=== PATIENT | male | born 1950 | race Caucasian/White ===

== ENCOUNTER 2024-12-18 06:07 | Inpatient (IN) | payer OTHER, SELFPAY ==
[2024-12-14 09:24] VITALS: BMI 32.7
[2024-12-14 09:58] LABS: % Basophils 0.5 % (0-2); % Eosinophils 1.2 % (0-6); % Immature Granulocytes 0.2 % (0-0.5); % Monocytes 8.6 % (1.7-9.3); % Neutrophils 67.5 % (42.2-75.2); Absolute Eosinophils 0.1 10^3/uL (0-0.7); Absolute Lymphocytes 0.9 10^3/uL (1.2-3.4); Absolute Monocytes 0.4 10^3/uL (0.1-0.6); Absolute Neutrophils 2.9 10^3/uL (1.4-6.5); Hematocrit 38.1 % (39.0-52.0); Hemoglobin 13.3 g/dL (13.0-18.0); Mean Corp Hgb Conc. 34.9 g/dL (33.0-37.0); Mean Corpuscular Hgb 34.7 pg (27.0-31.0); Mean Corpuscular Volume 99.5 fL (80.0-94.0); Mean Platelet Volume 11.1 fL (7.4-10.4); Nucleated Red Blood Cells % 0 % (-); Platelet Count 110 10^3/uL (130-400); Red Blood Cell Count 3.83 10^6/uL (4.70-6.10); Red Cell Dist. Width 13.2 % (11.5-14.5); White Blood Cell Count 4.3 10^3/uL (4.8-10.8)
[2024-12-14 10:07] LABS: INR 1.03; PT 13.8 Sec (11.4-14.6)
[2024-12-14 10:51] LABS: Blood Urea Nitrogen 26 mg/dl (9-20); Calcium 10.1 mg/dl (8.4-10.2); Carbon Dioxide 29 mmol/L (22-30); Chloride 108 mmol/L (98-107); Estimated Creatinine Clearance 76 ml/min; Glucose 132 mg/dl (70-99); Potassium 4.8 mmol/L (3.5-5.1); Sodium 142 mmol/L (135-145); eGFR > 60.00
[2024-12-18] VITALS (24 sets, daily range): BP systolic 122–165; BP diastolic 55–98; BMI 32.6
[2024-12-18] MEDS: BACTROBAN NASAL 1 GRAM NASAL (07:12)
[2024-12-18] MEDS: PERIDEX 0.12% ORAL RINSE 15 ML PO (07:12)
[2024-12-18] MEDS: NSS 500 IV (07:13)
[2024-12-18 07:21] LABS: Glucose - Point of Care 141 mg/dl (70-99)
--- NOTE | 2024-12-18 07:28 | W.SUR.PREOP ---
Pre-Operative Surgical Note
-
I have examined this patient prior to the performance of the scheduled procedure.
The patient's condition is unchanged from the time of the current History and
Physical and the patient is able to undergo the scheduled procedure.
[2024-12-18 08:43] LABS: ACT-LR - POC 255 Seconds (116-155)
[2024-12-18 09:33] LABS: ACT-LR - POC 284 Seconds (116-155)
--- NOTE | 2024-12-18 09:51 | W.SUR.POST ---
Surgical Immediate Post Op
Note
Pre Op Diagnosis: Right iliac artery aneurysm
Post Op Diagnosis: Same
Procedure Performed: Endovascular repair of right common iliac artery aneurysm with iliac branch device
Primary Surgeon: Maryann
Secondary Surgeons: Earle, PGY 5
Anesthesia: General
Estimated Blood Loss: 20cc
Fluids: See anesthesia flowsheet
Drains/Shunts: None
Specimens/Cultures: None
Doppler/Duplex/Angio (Y/N): Y
Complications: None
Operative Findings: No endoleak
[2024-12-18 10:20] LABS: Glucose - Point of Care 170 mg/dl (70-99)
[2024-12-18 10:43] LABS: Hematocrit 39.7 % (39.0-52.0); Hemoglobin 13.6 g/dL (13.0-18.0); Mean Corp Hgb Conc. 34.3 g/dL (33.0-37.0); Mean Corpuscular Hgb 34.3 pg (27.0-31.0); Mean Corpuscular Volume 100.3 fL (80.0-94.0); Mean Platelet Volume 10.7 fL (7.4-10.4); Platelet Count 99 10^3/uL (130-400); Red Blood Cell Count 3.96 10^6/uL (4.70-6.10); Red Cell Dist. Width 13.4 % (11.5-14.5); White Blood Cell Count 6.9 10^3/uL (4.8-10.8)
[2024-12-18 10:46] LABS: INR 1.12; PT 14.7 Sec (11.4-14.6)
[2024-12-18 10:47] LABS: APTT 34.6 Sec (23.4-35.0)
[2024-12-18 10:56] LABS: Blood Urea Nitrogen 19 mg/dl (9-20); Calcium 8.9 mg/dl (8.4-10.2); Carbon Dioxide 22 mmol/L (22-30); Chloride 113 mmol/L (98-107); Estimated Creatinine Clearance 108 ml/min; Glucose 170 mg/dl (70-99); Potassium 5.3 mmol/L (3.5-5.1); Sodium 139 mmol/L (135-145); eGFR > 60.00
--- NOTE | 2024-12-18 11:30 | PTCARENOTE ---
Pt rec'd from PACU at 11:25, neurovascular and site checks completed in tandem with COUNTY AUDITOR [place] upon arrival to ICU 3367. Bilat lower extremeties pink, cool, +Dopp pulses, cap refill >2 sec. Warm blankets applied. VSS, pt is AOx3 with no pain,
pleasant and cooperative. Orders reviewed. CXR, ECG and baseline ICU admit labs ordered per protocol. NSS gtt initiated via right hand per orders, see worklist. 16 pitcairn islander temp sensing calabrese in place for crit I+Os draining clear yellow urine, no
other needs at this time. Admission completed.
--- NOTE | 2024-12-18 11:38 | CON.INTV ---
Consultation
Consultation Request
Date/Time Consultation Requested: 12/18/2024858
Date/Time Consultation Performed: 12/18/2024923
Requesting Provider: PERFECTO Silva
Performing Provider: Dr. Esposito
Reason for Consultation: S/p endovascular repair of right common iliac artery aneurysm
Medical History
-
Chief Complaint: Elective endovascular repair of right common iliac artery aneurysm
History of Present Illness:
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
aneurysm. Patient known to the vascular surgery service with last visit on 11/21/[address] Wolf. Patient has had prior imaging at [facility]/[place]. CT angiogram shows left internal iliac artery aneurysm measuring 3 cm
which has been stable. Also a right common iliac artery aneurysm which measures at least 3.5 cm distal to the end of the right iliac limb. Endovascular repair of the right common iliac artery aneurysm was recommended. The risks and benefits of
this procedure were discussed with the patient in the office and he agreed to a vascular procedure. Today he underwent endovascular pair of right common iliac artery aneurysm with [place] iliac branch endoprosthesis. Patient tolerated procedure well
with no complications and an EBL of 10 cc. He was transferred to the ICU postoperatively and [employer] services consulted for additional management/recommendations.
Patient arrived to the ICU from PACU at 11:25 AM on 12/14/2024. When I saw the patient he was resting in bed in no acute distress. Heart rate 73, BP 122/79 and saturating 98% on room air. He denies chest pain, SOB, QUINN, nausea, fevers or chills.
PMHx: AAA, DM type II, hypertension, RA, former tobacco smoker
PSHx: Stent placement
Past Medical History
Past Medical History: Other (Above as per HPI)
Past Surgical History: Other (Above as per HPI)
Social History
Tobacco: Former Smoker (Quit in 2011, smoked 1-1.5 PPD x 45 years)
Alcohol: Occasional (Drink few cocktails few days a week)
Drug: None
Family History
Family History: Diabetes (Father) and Hypertension (Father)
Allergies / Home Medications
Allergies
Allergy/AdvReac Type Severity Reaction Status Date / Time
chocolate Allergy Severe Itchy Verified 12/18/24 07:25
Throat
Home Medications
�Medication �Instructions �Recorded �Confirmed �Last Taken �Type
H[place]ando 3 Ethyl Acid 2 g PO BID Supplement 12/12/24 12/18/24 12/12/24 09:00 History
aspirin 81 mg tablet 81 mg PO DAILY Blood Clot 12/12/24 12/18/24 12/17/24 09:00 History
Prevention/Tx
empagliflozin 10 mg tablet 10 mg PO DAILY Diabetes 12/12/24 12/18/24 12/14/24 09:00 History
(Jardiance)
folic acid 1 mg tablet 1 mg PO DAILY Supplement 12/12/24 12/18/24 12/12/24 09:00 History
gabapentin 300 mg capsule 600 mg PO HS Neuropathic pain 12/12/24 12/18/24 12/17/24 18:00 History
levothyroxine 137 mcg tablet 137 mcg PO DAILY Thyroid 12/12/24 12/18/24 12/18/24 04:00 History
losartan 50 mg tablet 50 mg PO DAILY Blood Pressure 12/12/24 12/18/24 12/14/24 09:00 History
metformin 500 mg tablet 1,000 mg PO BIDWMEAL Diabetes 12/12/24 12/18/24 12/17/24 18:00 History
Held on 12/18/24.
Instructions: Resume on
12/20/24.
methotrexate sodium 2.5 mg tablet 10 mg PO WE Rheumatoid arthritis 12/12/24 12/18/24 12/12/24 09:00 History
simvastatin 20 mg tablet 20 mg PO QPM High Cholesterol 12/12/24 12/18/24 12/17/24 18:00 History
Review of Systems
-
History Source: Patient
All other systems: Negative unless noted
Vitals / Labs / Diagnostic Testing
Vital Signs
Temp Pulse Resp BP Pulse Ox
97.4 F 81 14 130/76 94
12/18/24 11:30 12/18/24 14:01 12/18/24 14:01 12/18/24 14:01 12/18/24 14:01
Lab Data
12/18/24 10:29
12/18/24 10:29
Laboratory Results
12/18/24
10:29
PT 14.7 H
INR 1.12
APTT 34.6
Diagnostic Testing:
Physical Exam
-
HEENT: Normocephalic and Anicteric
Cardiovascular: S1/S2 and Peripheral Edema (n)
Respiratory: Clear, Wheeze (n), Rales (n), Rhonchi (n) and Non-Labored Respirations
GI: Soft, Distended (Abdominal obesity), Non Tender and Normal Bowel Sounds
Neurology: Awake, Alert, Oriented and Tremors (n)
Skin: Warm and Dry
General: Respiratory Distress (n), Comfortable, Fever (n), Chills (n) and Sweats (n)
Assessment
-
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
aneurysm. Patient known to the vascular surgery service with last visit on 11/21/[address] Wolf. Patient has had prior imaging at [facility]/[place]. CT angiogram shows left internal iliac artery aneurysm measuring 3 cm
which has been stable. Also a right common iliac artery aneurysm which measures at least 3.5 cm distal to the end of the right iliac limb. Endovascular repair of the right common iliac artery aneurysm was recommended. The risks and benefits of
this procedure were discussed with the patient in the office and he agreed to a vascular procedure. Today he underwent endovascular pair of right common iliac artery aneurysm with [place] iliac branch endoprosthesis. Patient tolerated procedure well
with no complications and an EBL of 10 cc. He was transferred to the ICU postoperatively and [employer] services consulted for additional management/recommendations.
Chronic conditions DIRECTOR OF PHYSICIAN PRACTICES: AAA, DM type II, hypertension, RA, former tobacco smoker
Impression:
#Right common iliac artery aneurysm with history of aortoiliac stent graft s/p endovascular repair of right common iliac artery aneurysm with Br[place]hall iliac branch endoprosthesis (POD#0)
#Thrombocytopenia (unclear if this is chronic versus acute)
#Hyperkalemia (mild)
#DM type II complicated by hyperglycemia (mild)
#Rheumatoid arthritis on MTX (weekly on Tuesday; managed by Dr. Fuentes [facility])
#Former tobacco smoker (smoked 1-1.5PPD x 45 years; quit 2011)
Plan:
Postoperative surgical intensive care unit monitoring
Supplemental oxygen as needed to maintain SpO2 >90-94% (currently on room air breathing comfortably)
prn nebulized bronchodilators � not currently bronchospastic
Incentive spirometry encouraged 10x per hour for at least 4 hrs a day
Aspiration precautions
Pain control
Neuro and vascular checks per protocol
Maintain MAP>65
Replete electrolytes with K>4, Mg>2
Maintain euglycemia with goal BG 140-180; check A1C
Vascular surgery following-correspondence and operative notes reviewed
Transfuse blood products as needed to keep Hb>7g/dL, and plt>50k (given post-operative status)
Given his significant tobacco smoking history, he does qualify for lung cancer screening for another 2 years. Imaging has been performed at [facility]; recommend additional screening to be done which could be performed by his PCP or he can always
follow-up with us in the office ([facility])
DVT prophylaxis: HSQ
Early nutrition
Early mobilization
Critical care statement: A total of 41 minutes of critical care time was provided for this patient today. This includes management of unstable vital signs, evaluation of the patient at bedside, reviewing the patient's pertinent medical records
including radiographs, microbiology, laboratory evaluations, and discussion with primary team, consultants, pharmacy, nutrition, physical therapy, case management, charge nurse, critical care nursing, and respiratory therapy.
[2024-12-18] MEDS: NSS 1000 IV ×2 (12:14→20:15)
[2024-12-18 12:24] LABS: Glucose - Point of Care 181 mg/dl (70-99)
--- NOTE | 2024-12-18 13:03 | OR.RPT ---
Operative Report
Operative Report
Date of Operation: 12/18/2024
Pre Op Diagnosis:
1. Right common iliac artery aneurysm
2. History of aortoiliac stent graft performed at outside hospital
Post Op Diagnosis:
1. Right common iliac artery aneurysm
2. History of aortoiliac stent graft performed at outside hospital
Procedure:
1. Endovascular repair of right common iliac artery aneurysm with [place] iliac branch endoprosthesis:
GORE CARLOS 23 mm x 14.5 mm x 10 cm
Right internal iliac stent: 8 mm x 79 mm GORE VBX (post dilated proximal with 12 mm x 20 mm balloon)
Proximal bridge stent: GORE ILIAC LIMB 27 mm x 10 cm
2. Ultrasound-guided percutaneous access to the bilateral common femoral arteries
3. Pro-glide closure bilateral common femoral artery access
Surgeon: Harish Wolf III, MD
Internet Sales Associate: Serge Og MD, PGY5
Anesthesia: General
Complications: None
Estimated Blood Loss: 10 cc
History and Indications for Procedure: 74-year-old male with prior aorto iliac stent grafting at an outside hospital. On surveillance imaging he developed a right common iliac artery aneurysm distal to the end of his right iliac limb. I made the
recommendation that he undergo endovascular repair of the right common iliac artery aneurysm with preservation of the internal iliac artery.
Procedure in Detail: Abhay Avila was correctly identified and placed supine on the operating table. After adequate induction of anesthesia the abdomen, pelvis and bilateral groins were positioned, prepped and draped in the usual sterile fashion.
Preoperative antibiotics were administered. A timeout procedure was performed with the nursing and anesthesia staff confirming the patients identity as well as the nature and laterality of the procedure.
Under direct US guidance the common femoral arteries were identified bilaterally. Percutaneous access was obtained in the standard fashion under direct US guidance using a micropuncture technique. I then upsized to 5Fr sheaths bilaterally over
Bentson wires. A pre-close technique was then used bilaterally with 2, offset Proglide closure devices. The sutures were secured and tucked under the drapes. Bilateral 8 Fr sheaths were then placed over the Bentson wires.
The patient was systemically heparinized.
Lunderquist wires were placed bilaterally through a glide catheter. The wire tips were positioned in the proximal descending thoracic aorta. A 16 Fr dry seal sheath was placed on the right and a 12 Fr on the left. The tips were both advanced
carefully under radiographic guidance. The radiopaque sheath tip on the right was positioned within the distal right iliac limb. The radiopaque sheath tip on the left was positioned just below the flow divider of the main body aortic stent graft.
A glide wire was advanced through the 12 Fr sheath and snared with an EnSnare device from the 16 Fr sheath. The wire was pulled out of the 16 Fr sheath and the wire lengths outside of the body were made to be equal.
The CARLOS device: 23 mm x 14.5 mm x 10 cm was then loaded onto the right femoral Lunderquist wire. The glide wire was loaded into the green port on the CARLOS device. The CARLOS was then advanced under radiographic guidance through the 16 Fr sheath into the
approximate desired location. The 16 Fr sheath was retracted distally and a retrograde sheath shot was performed to clearly visualize the right iliac system. Under roadmap guidance the CARLOS was oriented properly and partially deployed to release the
main body and the internal iliac branch.
The dilator was then readvanced into the 12 Fr. Keeping tension on the glidewire from both sides, the 12 Fr sheath was carefully advanced over the flow divider and hubbed at the left groin skin level. The radiopaque tip of the 12 [place] sheath was
not quite in the CARLOS graft. The dilator was removed. I then loaded a 7 [place]ic long sheath over the through and through Glidewire and brought this through the 12 [place] sheath extending into the CARLOS and internal iliac branch. Using a second glide
wire through the 7 [place]ic sheath I then advanced the wire through the internal iliac branch. I then removed the 7 [place] sheath over the wire. I then advanced a [place] catheter over the second Glidewire and selected the right internal iliac and
advanced the wire into a distal branch. This glide wire was then exchanged out for a [place] wire. Over the [place]ta wire and under radiographic guidance the internal iliac stent -8 mm x 79 mm [place] VBX was positioned appropriately, ensuring proper
overlap with the CARLOS branch and adequate purchase into the internal iliac artery. The stent was deployed without difficulty. A 12 mm balloon was then brought into position through the 12 Fr sheath and the mid and proximal internal iliac stent along
with all areas of overlap were profiled. I then completed deployment of the CARLOS device and carefully removed the delivery system over the wire. The 12 mm balloon was readvanced to the proximal portion of the internal stent. An 8 mm x 40 mm
angioplasty balloon was advanced retrograde through the 16 Icelandic sheath and I performed kissing balloon angioplasty of the external iliac artery and internal iliac artery. The 12 mm angioplasty balloon was removed over the wire. The 12 [place]ic
sheath was pulled back into the left iliac limb. The through and through Glidewire was removed
A pigtail catheter was then advanced over the Lunderquist wire on the right to obtain proper measurements for the bridging stent in the right iliac. I then brought into position a [place] excluder limb 27 mm x 10 cm and positioned this in the desired
location. The limb was deployed in the desired location. The [place] molding was then used to profile balloon all areas of the bridging stent from proximal to distal. The external limb segment was also profiled with this balloon.
A pigtail catheter was advanced through the 12 [place]ic sheath on the left into the proximal aortic main body. A completion arteriogram was then performed and demonstrated an excellent technical result - there was good positioning of the [place] CARLOS on
the right. The external and internal iliac limbs were both patent. The aortic main body was patent. Both the right and left iliac limbs were patent. The right internal iliac artery stent was widely patent and sealed nicely. No endoleak was
identified.
At this point we concluded the procedure. The sheaths were removed over wires one side at a time and the Pro-glide sutures were secured bilaterally. Hemostasis was achieved. Protamine was administered. Sterile dressings were applied.
Attestation: I was present and responsible for the entire procedure
Signed:
Harish Wolf III, MD
Vascular Surgery
[facility]
[2024-12-18] MEDS: NOVOLOG FLEXPEN-MODERATE RESISTANCE 1 UNITS SC ×2 (13:07→17:33)
[2024-12-18 15:20] LABS: Magnesium 1.8 mg/dl (1.6-2.3); Phosphorus 2.6 mg/dl (2.5-4.5)
--- NOTE | 2024-12-18 15:24 | PTCARENOTE ---
Pt remains comfortable, neurovascular checks WNL, bilat LEs warm, pink, cap refill <2 sec, strong Dopplar signals bilat. Groin sites soft, no hematoma noted. Pt tolerated CLD for lunch with no nausea, diet advanced to 1800 ruben diabetic diet for
dinner per WESLEY Zuleta's previous orders. Pt remains with HOB at 30 degrees, only complaint at this time is the calabrese catheter causing him the sensation of needing to void. Calabrese continues with brisk clear yellow urine output, see worklist. Call douglass
in hand.
[2024-12-18] MEDS: LIPITOR 10 MG PO (17:35)
[2024-12-18 17:41] LABS: Glucose - Point of Care 179 mg/dl (70-99)
--- NOTE | 2024-12-18 19:28 | PTCARENOTE ---
on assessment pt AAOx3, denies pain and SOB at this time, pt is bedrest HS, doppler pulses, RA 95%, diabetic diet, Wolf in place, b/l groin sites with Dermabond and DEVIN with ecchymotic areas around the site, no pain at site, q1h neurovascular
checks, see flow sheet, call douglass in reach
[2024-12-18] MEDS: MAGNESIUM SULFATE 100 IV (20:15)
[2024-12-18] MEDS: NEURONTIN 600 MG PO (21:12)
[2024-12-18 21:43] LABS: Glucose - Point of Care 230 mg/dl (70-99)
[2024-12-18] MEDS: NOVOLOG FLEXPEN 3 UNITS SC (22:18)
[2024-12-19] VITALS (11 sets, daily range): BP systolic 115–141; BP diastolic 62–81; BMI 32.4
--- NOTE | 2024-12-19 01:12 | PTCARENOTE ---
pt pulse ox 89% occasionally while sleeping, 2L O2 placed HS, call douglass in reach
--- NOTE | 2024-12-19 04:25 | PTCARENOTE ---
no changes from prior assessment, call douglass in reach
[2024-12-19] MEDS: SYNTHROID 137 MCG PO (05:22)
[2024-12-19 05:53] LABS: INR 1.11; PT 14.8 Sec (11.4-14.6)
[2024-12-19 05:54] LABS: APTT 29.3 Sec (23.4-35.0)
[2024-12-19 05:57] LABS: Hematocrit 34.3 % (39.0-52.0); Hemoglobin 11.8 g/dL (13.0-18.0); Mean Corp Hgb Conc. 34.4 g/dL (33.0-37.0); Mean Corpuscular Hgb 34.7 pg (27.0-31.0); Mean Corpuscular Volume 100.9 fL (80.0-94.0); Mean Platelet Volume 11.5 fL (7.4-10.4); Platelet Count 91 10^3/uL (130-400); Red Cell Dist. Width 13.4 % (11.5-14.5); White Blood Cell Count 6.4 10^3/uL (4.8-10.8)
[2024-12-19 06:19] LABS: Blood Urea Nitrogen 17 mg/dl (9-20); Calcium 8.5 mg/dl (8.4-10.2); Carbon Dioxide 22 mmol/L (22-30); Chloride 115 mmol/L (98-107); Estimated Creatinine Clearance 108 ml/min; Glucose 138 mg/dl (70-99); Potassium 4.6 mmol/L (3.5-5.1); Sodium 142 mmol/L (135-145); eGFR > 60.00
[2024-12-19] MEDS: NSS 1000 IV (06:31)
--- NOTE | 2024-12-19 07:30 | PTCARENOTE ---
Assumed care of pt at 0715 following shift report. Pt awake and resting quietly in bed. Denies c/o pain. Physical assessment completed as documented. Bilateral groin incision sites well approximated w/ small amount of ecchymosis noted-unchanged per
previous shift RN. Bilateral PT/DP pulses by doppler. Call douglass w/in pt reach and safe environment maintained.
[2024-12-19 08:01] LABS: Glucose - Point of Care 134 mg/dl (70-99)
--- NOTE | 2024-12-19 08:10 | W.PN.VS ---
Today's Communication / Plan
-
Discussed with Dr. Wolf
Assessment/Plan
-
Postop day 1
Endovascular repair of right common iliac artery aneurysm with [place] iliac branch endoprosthesis:
Pro-glide closure bilateral common femoral artery access
Plan:
DC Wolf
Out of bed to chair/ambulate
P.o. meds
Increase diet
DC home later today
Subjective Data
-
Date of Service: December 19, 2024
Patient seen at bedside this a.m. Patient complains of being interrupted multiple times overnight. No actual events overnight. Patient stable.
Objective Data
-
Vital Signs
Temp Pulse Resp BP Pulse Ox
97.5 F 53 14 129/74 96
12/19/24 07:17 12/19/24 06:00 12/19/24 06:00 12/19/24 06:00 12/19/24 06:00
Intake and Output
12/18/24 12/19/24 12/20/24
06:59 06:59 06:59
Intake Total 2370 / 2450 80 / 80
Output Total 3240 / 3240 300 / 300
Balance -870 / -790 -220 / -220
Intake:
Oral fluids 750 / 750
IV fluids (Total) 1620 / 1700 80 / 80
Nss 1,000 ml @ 80 mls/hr IV . 1520 / 1600 80 / 80
[id number] HENRI Rx#:[id number]
normosol 100 / 100
Output:
UrineMaryann 3240 / 3240 300 / 300
Lab Results
12/19/24 05:18
12/19/24 05:18
Calcium 8.5 mg/dl (8.4-10.2) 12/19/24 05:18
Phosphorus Cancelled 12/18/24 12:11
Magnesium Cancelled 12/18/24 12:11
Physical Exam
-
AAO x 3
No tachypnea on room air
No tachycardia
Abdomen soft, nontender
Groin sites clean, dry, intact, soft, flat
Bilateral feet warm and pink
[2024-12-19] MEDS: FOLVITE 1 MG PO (08:11)
[2024-12-19] MEDS: COZAAR 50 MG PO (08:11)
[2024-12-19] MEDS: NOVOLOG FLEXPEN-MODERATE RESISTANCE SC (08:11)
[2024-12-19] MEDS: FARXIGA 10 MG PO (08:11)
[2024-12-19] MEDS: LOW STRENGTH ASPIRIN 81 MG PO (08:11)
--- NOTE | 2024-12-19 08:22 | W.PN.INTV ---
Today's Communication / Plan
Recommendations
Up OOB as tolerated
Encourage incentive spirometer
Outpatient follow-up with vascular surgery
Qualifies for lung cancer screening which should be ordered by his PCP otherwise patient can follow-up with us in the office
Patient is being prepared for discharge home. No additional recommendations at this time. Ecommerce Marketing Manager/Pulmonary service will now sign off. Please reconsult if there are any additional questions/concerns, or if patient's respiratory status
deteriorates.
Assessment
-
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
aneurysm. Patient known to the vascular surgery service with last visit on 11/21/[address] Wolf. Patient has had prior imaging at [facility]/[place]. CT angiogram shows left internal iliac artery aneurysm measuring 3 cm
which has been stable. Also a right common iliac artery aneurysm which measures at least 3.5 cm distal to the end of the right iliac limb. Endovascular repair of the right common iliac artery aneurysm was recommended. The risks and benefits of
this procedure were discussed with the patient in the office and he agreed to a vascular procedure. Today he underwent endovascular pair of right common iliac artery aneurysm with Weott iliac branch endoprosthesis. Patient tolerated procedure well
with no complications and an EBL of 10 cc. He was transferred to the ICU postoperatively and Ecommerce Marketing Manager services consulted for additional management/recommendations.
Chronic conditions DIRECTOR SALES SUPPORT: AAA, DM type II, hypertension, RA, former tobacco smoker
Impression:
#Right common iliac artery aneurysm with history of aortoiliac stent graft s/p endovascular repair of right common iliac artery aneurysm with Weott iliac branch endoprosthesis (POD#1)
#Thrombocytopenia (unclear if this is chronic versus acute)
#Hyperkalemia (mild) - now [K] is WNL
#DM type II complicated by hyperglycemia (mild)
#Rheumatoid arthritis on MTX (weekly on Tuesday; managed by Dr. [facility])
#Former tobacco smoker (smoked 1-1.5PPD x 45 years; quit 2011)
Plan:
Postoperative surgical intensive care unit monitoring
Supplemental oxygen as needed to maintain SpO2 >90-94% (currently on room air breathing comfortably)
prn nebulized bronchodilators � not currently bronchospastic
Incentive spirometry encouraged 10x per hour for at least 4 hrs a day
Aspiration precautions
Pain control
Neuro and vascular checks per protocol
Maintain MAP>65
Replete electrolytes with K>4, Mg>2
Maintain euglycemia with goal BG 140-180; check A1C
Vascular surgery following-correspondence and operative notes reviewed
Transfuse blood products as needed to keep Hb>7g/dL, and plt>50k (given post-operative status)
Given his significant tobacco smoking history, he does qualify for lung cancer screening for another 2 years. Imaging has been performed at [place]; recommend additional screening to be done which could be performed by his PCP or he can always
follow-up with us in the office ([facility])
DVT prophylaxis: HSQ
Early nutrition
Early mobilization
Patient is being prepared for discharge home. No additional recommendations at this time. Ecommerce Marketing Manager/Pulmonary service will now sign off. Thank you for allowing us to be involved in the care of this patient. Please reconsult if there are any
additional questions/concerns, or if patient's respiratory status deteriorates.
Total time spent today was 42 minutes for this encounter. Time includes reviewing laboratory test/imaging results, reviewing pertinent medical records, obtaining and reviewing medical history, performing an appropriate exam, ordering medications,
tests and procedures. Time also includes documentation of this encounter, coordinating patient care and communicating with other healthcare professionals. Total time does not include separately billed tests performed on this date of service.
Subjective Dataa
Subjective Data
Date of Service:
Date of Service: December 19, 2024
Chief Complaint: Ecommerce Marketing Manager Follow Up
Subjective:
Patient seen this morning. Doing well. Being prepared for discharge home today. Afebrile overnight. Denies chest pain, SOB, QUINN, nausea, fevers or chills.
Review of Systems
General: Other (Negative unless mentioned above)
Objective Data
Data Reviewed
Vital Signs / I&O / Oxygen:
Vital Signs
Temp Pulse Resp BP Pulse Ox
97.5 F 62 14 122/76 99
12/19/24 07:17 12/19/24 08:11 12/19/24 06:00 12/19/24 08:11 12/19/24 08:00
Intake and Output
12/18/24 12/19/24 12/20/24
06:59 06:59 06:59
Intake Total 2370 / 2450 320 / 320
Output Total 3240 / 3240 300 / 300
Balance -870 / -790 20 / 20
SaO2 99
Nasal Cannula flow liters per 2
minute
Physical Exam
General: Respiratory Distress (negative), Comfortable, Chills (negative) and Sweats (negative)
HEENT: Normocephalic and Anicteric
Cardiovascular: S1-S2 and Peripheral Edema (negative)
Respiratory: Clear, Wheeze (negative), Crackles (negative), Rhonchi (negative) and Non-Labored Respirations
GI: Soft, Non Distended, Non Tender and Normal Bowel Sounds
Neurology: Awake, Alert, Oriented and Tremors (negative)
Skin: Warm, Dry, Cyanosis (negative) and Jaundice (negative)
Labs/Micro/Reports
Lab Data
12/19/24 05:18
12/19/24 05:18
Laboratory Results
12/18/24 12/19/24
10:29 05:18
PT 14.7 H 14.8 H
INR 1.12 1.11
APTT 34.6 29.3
[2024-12-19 08:30] LABS: Glycohemoglobin (HgbA1c) 6.9 % (4.0-5.6)
--- NOTE | 2024-12-19 08:41 | W.DS.TRANS ---
DC Summary - Sales And Marketing Associate
-
Discharge Instructions:
Discharge Diagnosis/Procedures Endovascular repair of right common iliac artery
aneurysm with iliac branch device
Diet As tolerated
Activity No strenuous activity
Driving Restrictions No driving for 1 week
Bathing Restrictions OK to Shower
Instructions:
Stand-Alone Forms: Vascular Surg Discharge Instr
Changes to Home Medications: No
Discharge Medications:
DC Medications w/original date entered in [employer]
aspirin 81 mg tablet 81 mg PO DAILY Blood Clot Prevention/Tx 12/12/24
empagliflozin 10 mg tablet (Jardiance) 10 mg PO DAILY Diabetes 12/12/24
folic acid 1 mg tablet 1 mg PO DAILY Supplement 12/12/24
gabapentin 300 mg capsule 600 mg PO HS Neuropathic pain 12/12/24
levothyroxine 137 mcg tablet 137 mcg PO DAILY Thyroid 12/12/24
losartan 50 mg tablet 50 mg PO DAILY Blood Pressure 12/12/24
metformin 500 mg tablet 1,000 mg PO BIDWMEAL Diabetes 12/12/24
Held on 12/18/24. Instructions: Resume on 12/20/24.
methotrexate sodium 2.5 mg tablet 10 mg PO WE Rheumatoid arthritis 12/12/24
simvastatin 20 mg tablet 20 mg PO QPM High Cholesterol 12/12/24
ezetimibe 10 mg tablet 10 mg PO DAILY High Cholesterol 12/18/24
omega-3 acid ethyl esters 1 gram capsule 2 cap PO BID 12/18/24
Home Medication Changes
Pending Results: No
--- NOTE | 2024-12-19 09:13 | CM ---
Initial assessment completed with patient who lives with his in a 3 story plus basement home with B/B on 2nd, 1/2 bath on 1st and 3 steps to enter. No DME or in-home services. 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 Does have
HC-POA. PCP is Dr. Wicho Cali and Pharmacy is [facility] in [place]. Discharge POC: Home with no needs.
--- NOTE | 2024-12-19 09:45 | PTCARENOTE ---
Pt ambulated around entire unit. Gait steady. No complaints/complications. Returned to chair -waiting to void post Wolf removal.
--- NOTE | 2024-12-19 10:11 | CM ---
Initial assessment completed with patient who lives with his in a 3 story plus basement home with B/B on 2nd, 1/2 bath on 1st and 3 steps to enter. No DME or in-home services. 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 Does have
HC-POA. PC is Dr. Wicho Cali and Pharmacy is [facility] in [place]. Discharge POC: Home with no needs.
--- NOTE | 2024-12-19 10:13 | CM ---
Patient has been medically cleared for discharge to home with no additional services. will transport home.
--- NOTE | 2024-12-19 11:23 | PTCARENOTE ---
Pt voided x2 in [facility]. No new complaints or changes noted. C Merlyn GROVE updated. Discharge order confirmed. Pt ambulating independently in room. project finance analyst and IV s removed. Pt contacted to provide transportation
--- NOTE | 2024-12-19 11:29 | PTCARENOTE ---
Pt provided w/ information cards about stent placed this admission
--- NOTE | 2024-12-19 12:05 | PTCARENOTE ---
Transported to exit via WC w/ staff escort. No changes or new complaints.
== END 2024-12-19 12:08 | disposition home or self-care (01) | DRG 272 ==
LOC: ICU 06:07
PROVIDERS: Nurse Practitioner Acute Care; ADMITTING PHYSICIAN Surgery Vascular Surgery; CONSULT PHYSICIAN Internal Medicine Critical Care Medicine; PRIMARYCARE PHYSICIAN Family Medicine
PROC: 04VC3EZ Restriction of Right Common Iliac Artery with Branched or Fenestrated Intraluminal Device, One or Two Arteries, Percutaneous Approach (ICD-10-PCS; 2024-12-18)
DX: I72.3 Aneurysm of iliac artery (principal); E11.65 Type 2 diabetes mellitus with hyperglycemia; M06.9 Rheumatoid arthritis, unspecified; E87.5 Hyperkalemia; I71.40 Abdominal aortic aneurysm, without rupture, unspecified; D69.6 Thrombocytopenia, unspecified; I10 Essential (primary) hypertension; Z87.891 Personal history of nicotine dependence; Z79.631 Long term (current) use of antimetabolite agent; Z82.49 Family history of ischemic heart disease and other diseases of the circulatory system; Z79.82 Long term (current) use of aspirin; Z79.899 Other long term (current) drug therapy
CPT/HCPCS: 34718; 36415; 71045; 71046; 80048; 82962; 83036; 83735; 84100; 85025; 85027; 85610; 85730; 86850; 86900; 86901; 93005; C1725; C1760; C1768; C1769; C1773; C1894; Q9967

== ENCOUNTER → 2025-01-16 12:55 | Outpatient (REF) | payer OTHER, SELFPAY | LOC: RAD 12:55 | PROVIDERS: ATTENDING PHYSICIAN Registered Nurse; FAMILY PHYSICIAN Family Medicine | DX: I72.3 Aneurysm of iliac artery (principal) | CPT/HCPCS: 74174; Q9967 ==

== ENCOUNTER → 2025-01-22 14:01 | Outpatient (REF) | payer OTHER, SELFPAY | LOC: RAD 14:01 | PROVIDERS: ATTENDING PHYSICIAN Registered Nurse; FAMILY PHYSICIAN Family Medicine | DX: I72.3 Aneurysm of iliac artery (principal) | CPT/HCPCS: 93922 ==